=== PATIENT | female | born 1945 | race Caucasian/White ===

== ENCOUNTER 2017-10-15 10:59 | Outpatient (CLI) | payer MEDICARE, BC | END 2017-10-15 11:00 | disposition home or self-care (01) | LOC: BICMAMMO 10:59 | PROVIDERS: ATTEND Obstetrics & Gynecology | DX: Z12.31 Encounter for screening mammogram for malignant neoplasm of breast (principal); Z85.3 Personal history of malignant neoplasm of breast | CPT/HCPCS: 77063; 77067 ==

== ENCOUNTER 2018-07-12 10:17 | Emergency (ER) | payer MEDICARE, BC ==
[2018-07-12 10:39] LABS: Bilirubin Small (Negative); Blood, Urine Trace (Negative); Glucose, Urine (Dipstick) Negative (Negative); Leukocyte Small (Negative); Nitrite Positive (Negative); Protein, Urine (Dipstick) 30 mg/dL (Neg-Trace); Specific Gravity, Urine 1.015 (1.005-1.030)
[2018-07-12 10:40] LABS: Clarity Hazy (Clear)
[2018-07-12 10:48] LABS: Bacteria/HPF 2+ HPF (None Seen); RBC/HPF 0-3 HPF (0-3)
== END 2018-07-12 10:52 | disposition home or self-care (01) ==
LOC: SCSER 10:17
DX: N39.0 Urinary tract infection, site not specified (principal); K21.9 Gastro-esophageal reflux disease without esophagitis; I10 Essential (primary) hypertension; F41.9 Anxiety disorder, unspecified; Z79.899 Other long term (current) drug therapy
CPT/HCPCS: 81003; 81015; 87086; 99283

== ENCOUNTER 2018-12-24 13:03 | Outpatient (CLI) | payer MEDICARE, BC ==
--- NOTE | 2018-12-24 15:15 | MMO ---
Bilateral MAMMO Bilat Screen [facility]. CLINICAL HISTORY: Patient is 73 years old and is seen for screening. The patient has the following family history of breast cancer: paternal aunt. The patient has no personal history of cancer. The patient has a history of bilateral Cyst Aspiration - benign - 3 times. VIEWS: The views performed were: bilateral craniocaudal with tomosynthesis; bilateral mediolateral oblique with tomosynthesis; and bilateral exaggerated craniocaudal. FILMS COMPARED: The present examination has been compared to prior imaging studies performed at [facility] on 09/28/2014, 10/04/2015, 10/09/2016 and 10/15/2017. MAMMOGRAM FINDINGS: The breasts are heterogeneously dense, which could obscure a lesion on mammography. There are no suspicious masses, suspicious calcifications, or new areas of architectural distortion. IMPRESSION: THERE IS NO MAMMOGRAPHIC EVIDENCE OF MALIGNANCY. A ROUTINE FOLLOW-UP MAMMOGRAM IN 1 YEAR IS RECOMMENDED. THE RESULTS OF THIS EXAM WERE SENT TO THE PATIENT. ACR BI-RADS Category 1 - Negative MAMMOGRAPHY NOTE: 1. A negative mammogram report should not delay a biopsy if a dominant of clinically suspicious mass is present. 2. Approximately 10% to 15% of breast cancers are not detected by mammography. 3. Adenosis and dense breasts may obscure an underlying neoplasm.
== END 2018-12-24 13:04 | disposition home or self-care (01) ==
LOC: BICMAMMO 13:03
PROVIDERS: ATTEND Obstetrics & Gynecology
DX: Z12.31 Encounter for screening mammogram for malignant neoplasm of breast (principal); Z80.3 Family history of malignant neoplasm of breast
CPT/HCPCS: 77063; 77067

== ENCOUNTER 2022-03-14 14:02 | Outpatient (CLI) | payer MEDICARE, BC | END 2022-03-14 14:03 | disposition home or self-care (01) | LOC: SCSMRI 14:02 | PROVIDERS: ATTEND Orthopaedic Surgery Hand Surgery | DX: S66.811A Strain of other specified muscles, fascia and tendons at wrist and hand level, right hand, initial encounter (principal) ==

== ENCOUNTER 2022-03-27 10:29 | Outpatient (CLI) | payer MEDICARE, BC ==
[2022-03-27 12:09] LABS: #Monocytes 0.6 10x3/uL (0.0-1.1); #Neutrophils 3.5 10x3/uL (1.5-8.4); %Basophils 0.6 % (0.0-2.0); %Eosinophils 0.8 % (0.0-6.0); %Lymphocytes 22.6 % (18.0-47.0); %Monocytes 10.3 % (0.0-10.0); %Neutrophils 65.5 % (40.0-75.0); Mean Corpuscular HGB CONC 33.9 g/dL (32.0-36.0); Mean Corpuscular Hemoglobin 29.3 pg (27.0-33.0); Mean Corpuscular Volume 86.4 fl (81.6-98.3); Mean Platelet Volume 9.9 fl (7.4-10.4); Platelet Count 234 10x3/uL (150-450); RBC Distribution Width 12.9 % (11.5-14.5); Red Blood Cell (RBC) Count 4.78 10x6/uL (3.90-5.03); White Blood Cell (WBC) Count 5.3 10x3/uL (3.5-10.5)
== END 2022-03-27 10:30 | disposition home or self-care (01) ==
LOC: LABBT 10:29
PROVIDERS: ATTEND Orthopaedic Surgery Hand Surgery
DX: Z01.812 Encounter for preprocedural laboratory examination (principal); S66.312A Strain of extensor muscle, fascia and tendon of right middle finger at wrist and hand level, initial encounter; Z20.822 Contact with and (suspected) exposure to COVID-19
CPT/HCPCS: 85025; 87811

== ENCOUNTER 2022-03-29 05:50 | Day surgery (SDC) | payer MEDICARE, BC ==
[2022-03-27 12:45] VITALS: BMI 22.1
[2022-03-29] MEDS ORDERED: Bupivacaine PF 0.5% 30 ML VIAL ONE (08:45)
[2022-03-29] MEDS ORDERED: Neomycin-Polymyxin 1 ML AMP ONE (08:45)
[2022-03-29] MEDS ORDERED: Bacitracin Zinc Ointment 30 gm TUBE ONE (08:45)
[2022-03-29] MEDS ORDERED: Betamet Acet/Betamet Na Ph 30 MG/5 ML VIAL ONE (08:45)
[2022-03-29] MEDS ORDERED: fentaNYL Citrate/PF 100 MCG/2 ML SYRINGE ONE (09:04)
[2022-03-29] MEDS ORDERED: Sodium Chloride 0.9% 100 ML ONE (09:05)
[2022-03-29] MEDS ORDERED: CEFAZOLIN 2 GM VIAL ONE (09:05)
[2022-03-29] MEDS ORDERED: ePHEDrine 50 MG/ML VIAL ONE (09:15)
[2022-03-29] MEDS ORDERED: Ketorolac Tromethamine 30 MG/ML VIAL ONE ×2 (09:15→10:43)
[2022-03-29] MEDS ORDERED: Dexamethasone 20 MG/5 ML VIAL ONE (09:15)
[2022-03-29] MEDS ORDERED: Lidocaine 1% MPF 2 ML VIAL ONE (09:15)
[2022-03-29] MEDS ORDERED: Ondansetron PF 4 MG/2 ML Vial ONE (09:15)
[2022-03-29] MEDS ORDERED: PROPOFOL 200 MG/20 ML VIAL ONE (09:15)
== END 2022-03-29 12:08 | disposition home or self-care (01) ==
LOC: SDC 05:50
PROVIDERS: ATTEND Orthopaedic Surgery Hand Surgery
PROC: 0LM70ZZ Reattachment of Right Hand Tendon, Open Approach (ICD-10-PCS; principal; 2022-03-29)
DX: S66.811A Strain of other specified muscles, fascia and tendons at wrist and hand level, right hand, initial encounter (principal); I10 Essential (primary) hypertension; K21.9 Gastro-esophageal reflux disease without esophagitis; M81.0 Age-related osteoporosis without current pathological fracture; M20.011 Mallet finger of right finger(s); Z79.899 Other long term (current) drug therapy; Z88.2 Allergy status to sulfonamides; Z88.8 Allergy status to other drugs, medicaments and biological substances
CPT/HCPCS: 26433; 73140; 76000; C1894; J0690; J0702; J1885; J3490; S0020